=== PATIENT | female | born 1960 | race American Indian/Alaskan Native ===

== ENCOUNTER 2016-10-16 12:20 | Outpatient (CLI) | payer OTHER ==
--- NOTE | 2016-10-16 14:13 | Cat Scan Report ---
CT LOWER EXTREMITY LEFT WITHOUT CONTRAST HISTORY: Left metatarsal bone fracture. FINDINGS: No comparison. Mild osteopenia is suspected. No fracture, dislocation, bony erosions or bone lesion is identified. 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 The soft tissues are unremarkable. IMPRESSION: Mild osteopenia. Mild degenerative changes. No metatarsal fracture is identified on CT.
== END 2016-10-16 12:21 | disposition home or self-care (01) ==
LOC: CT 12:20
PROVIDERS: ATTEND Orthopaedic Surgery
DX: S92.335D Nondisplaced fracture of third metatarsal bone, left foot, subsequent encounter for fracture with routine healing (principal); M19.072 Primary osteoarthritis, left ankle and foot; M85.88 Other specified disorders of bone density and structure, other site; X58.XXXD Exposure to other specified factors, subsequent encounter

== ENCOUNTER 2016-12-04 14:49 | Outpatient (CLI) | payer OTHER | END 2016-12-04 14:50 | disposition home or self-care (01) | LOC: LABHHL 14:49 | PROVIDERS: ATTEND Specialist | DX: N63 Unspecified lump in breast (principal) | CPT/HCPCS: 88112 ==